=== PATIENT | female | born 1980 | race Caucasian/White ===

== ENCOUNTER 2019-04-22 10:47 | Emergency (ER) | payer OTHER ==
[2019-04-22 10:58] VITALS: BP 124/81
--- NOTE | 2019-04-22 12:34 | UC ---
Skin Complaint HPI - HPI Summary HPI Summary: 39 y/o female presents to the urgent care c/o right inner thigh had ticjk attached - History of Current Complaint Chief Complaint: UCSkin Time Seen by Provider: 04/22/19 12:29 Stated Complaint: RT INNERTHIGH TICK BITE Hx Obtained From: Patient Hx Last Menstrual Period: 03/23/19 Onset/Duration: Sudden Onset, Lasting Days - less than 24hrs Skin Exposure Onset/Duration: Days Ago - 1 day was outside yesterday Timing: Constant Onset Severity: Mild Current Severity: Mild Pain Intensity: 0 Pain Scale Used: 0-10 Numeric Location: Discrete - Rt inner thigh tick bite Character: Redness Aggravating Factor(s): Touch Alleviating Factor(s): Other - tick removal Associated Signs & Symptoms: Positive: Rash - tick bite in the RT inner thigh. Negative: Fever, Chills Related History: Possible Reaction to: Insect - tick bite - Allergy/Home Medications Allergies/Adverse Reactions: Allergies Allergy/AdvReac Type Severity Reaction Status Date / Time methylergonovine Allergy anaph Verified 04/22/19 10:58 [From Methergine] promethazine [From Phenergan] Allergy hallucinations Verified 04/22/19 10:58 and hives GLUTIN Allergy Mild Abdominal Uncoded 04/22/19 10:58 Pain Home Medications: Home Medications Dextroamphetamine/Amphetamine [Amphetamine/Dextroampheta 30 mg-] 1 tab PO DAILY 04/22/19 [History Confirmed 04/22/19] Levothyroxine TAB* [Synthroid 125 MCG TAB*] 1 tab [id number] DAILY 04/22/19 [ History Confirmed 04/22/19] PMH/Surg Hx/FS Hx/Imm Hx Previously Healthy: Yes Endocrine History: Hypothyroidism Other Psychological History: ADHD - Surgical History Surgical History: Yes Surgery Procedure, Year, and Place: c/sec dc choleistectomy - Family History Known Family History: Positive: Cardiac Disease, Hypertension, Diabetes - Social History Occupation: Employed Full-time Lives: With Family Alcohol Use: Occasionally Substance Use Type: None Smoking Status (MU): Never Smoked Tobacco Review of Systems All Other Systems Reviewed And Are Negative: Yes Constitutional: Positive: Negative Skin: Positive: Other - tick bite in the Rt inner thigh Eyes: Positive: Negative ENT: Positive: Negative Respiratory: Positive: Negative Cardiovascular: Positive: Negative Gastrointestinal: Positive: Negative Genitourinary: Positive: Negative Motor: Positive: Negative, Decreased ROM Musculoskeletal: Positive: Negative Neurological: Positive: Negative Psychological: Positive: Negative Is Patient Immunocompromised?: No Physical Exam - Summary Physical Exam Summary: Vital Signs Reviewed: Yes General: well developed, well nourished female sitting in the examining table w/ o any apparent distress. Eyes: Positive: Conjunctiva Clear - PERRLA, EOMI ENT: Positive: Normal ENT inspection, Hearing grossly normal, Pharynx normal, TMs normal Neck: Positive: Supple, Nontender, No Lymphadenopathy Respiratory: Positive: Chest nontender, Lungs clear, Normal breath sounds Cardiovascular: Positive: RRR, No Murmur, Pulses Normal Abdomen Description: Positive: Nontender, No Organomegaly, Soft. Negative: CVA Tenderness (R), CVA Tenderness (L) Bowel Sounds: Positive: Present Musculoskeletal: Positive: Strength Intact, ROM Intact, No Edema Neurological Exam: Normal Psychological Exam: Normal Skin: Positive: rashes - distal medial aspect of RT thigh with tick bite with surrounding erythema, non tender to palpation. tick no longer present, no swelling or drainage observed. Triage Information Reviewed: Yes Vital Signs: Initial Vital Signs Temp 98 F 04/22/19 10:55 Pulse 95 04/22/19 10:55 Resp 16 04/22/19 10:55 BP 124/81 04/22/19 10:55 Pulse Ox 100 04/22/19 10:55 Course/Dx - Course Course Of Treatment: PT w/ distal medial aspect of RT thigh with tick bite with surrounding erythema, non tender to palpation. tick no longer present, no swelling or drainage observed. - Differential Diagnoses - Skin Complaint Differential Diagnoses: Abscess, Cellulitis, Contact Dermatitis, Local Allergic Reaction, MRSA, Poison [place], Poison [place], Tick Born Illness, Other - insect bite or tick bite - Diagnoses Provider Diagnosis: Tick bite of right thigh Discharge - Sign-Out/Discharge Documenting (check all that apply): Patient Departure - d/c home All imaging exams completed and their final reports reviewed: No Studies - Discharge Plan Condition: Stable Disposition: HOME Patient Education Materials: Tick Bite (ED) Referrals: Josh BAINS,Drew Farooq [Primary Care Provider] - 2 Weeks Annalise BAINS,Ye Garcia [Medical Doctor] - If Needed Additional Instructions: 1- Please observe the area for the development or Erythema Migrans for upto 30 days following exposure. Components of the tick saliva can cause transient erythema that should not be confused with Erythema Migrans. If you develop the bull's eye rash, fever, joint pains please return to the urgent care or f/u with your PCP or Dr Woody for further management. Apply Bacitracin oint around tick bite as directed 2-Antibiotic prophylaxis with Doxycycline was given to you today to prevent lyme Disease. Lyme serology can be drawn in 2 weeks with your PCP to r/o Lyme disease since there is probability of negative results at early exposure. - Billing Disposition and Condition Condition: STABLE Disposition: Home
[2019-04-22] MEDS ORDERED: DOXYcycline CAP(*) 100 MG PO ONE (12:46)
== END 2019-04-22 12:55 | disposition home or self-care (01) ==
LOC: UCEAST 10:47
DX: S70.361A Insect bite (nonvenomous), right thigh, initial encounter (principal); W57.XXXA Bitten or stung by nonvenomous insect and other nonvenomous arthropods, initial encounter; Y92.9 Unspecified place or not applicable; E03.9 Hypothyroidism, unspecified; F90.9 Attention-deficit hyperactivity disorder, unspecified type
CPT/HCPCS: 99212; A9270-GY; G0463